=== PATIENT | male | born 1980 | race Caucasian/White ===

== ENCOUNTER 2019-12-10 07:54 | Day surgery (SDC) | payer MEDICAID ==
[2019-12-05 10:45] LABS: BASOPHILS # (AUTO) 0.1 X10'3 (0-0.2); EOSINOPHILS # (AUTO) 0.5 X10'3 (0-0.9); LYMPHOCYTES # (AUTO) 3.1 X10'3 (1.1-4.8); LYMPHOCYTES % (AUTO) 31.3 % (21-51); MEAN CORPUSCULAR HEMOGLOBIN 29.2 PG (27.0-31.0); MEAN CORPUSCULAR HGB CONC 34.4 g/dL (33.0-36.5); MEAN CORPUSCULAR VOLUME 84.7 FL (78-98); MEAN PLATELET VOLUME 8.1 FL (7.4-10.4); MONOCYTES # (AUTO) 0.7 X10'3 (0-0.9); MONOCYTES % (AUTO) 7.2 % (2-12); NEUTROPHILS # (AUTO) 5.4 X10'3 (1.8-7.7); NEUTROPHILS % (AUTO) 55.5 % (42-75); PRE OP HEMATOCRIT 47.3 % (42.0-52.0); PRE OP HEMOGLOBIN 16.3 g/dL (14.0-17.9); PRE OP PLATELET COUNT 244 X10'3 (140-440); RED BLOOD COUNT 5.58 X10'6 (4.70-6.10); RED CELL DISTRIBUTION WIDTH 14.4 % (11.5-14.5)
[2019-12-05 11:07] LABS: ALBUMIN 4.5 G/DL (3.4-5.0); ALBUMIN/GLOBULIN RATIO 1.4 (1.1-1.5); ALKALINE PHOSPHATASE 72 IU/L (46-116); BLOOD UREA NITROGEN 22 MG/DL (7-18); BUN/CREATININE RATIO 21.4 (5.4-32.0); CALCIUM 8.9 MG/DL (8.5-10.1); CHLORIDE 106 MMOL/L (99-107); CREATININE 1.03 MG/DL (0.60-1.10); PRE OP ALT 57 U/L (30-65); PRE OP ANION GAP 4 (8-16); PRE OP AST 26 U/L (10-37); PRE OP BILIRUB, TOTAL 0.7 MG/DL (0.0-1.0); PRE OP GLUCOSE 96 MG/DL (70-104); PRE OP POTASSIUM 3.9 MMOL/L (3.4-5.1); PRE OP SODIUM 142 MMOL/L (135-145); TOTAL CARBON DIOXIDE 32.2 MMOL/L (24-32); TOTAL PROTEIN 7.7 G/DL (6.4-8.2); eGFR 80 ML/MIN
[2019-12-05 11:16] LABS: CLARITY,URINE CLOUDY (Clear); COLOR,URINE YELLOW (Yellow); GLUCOSE, URINE NEGATIVE (Neg); KETONES,URINE NEGATIVE (Neg); LEUKOCYTE ESTERASE ,URINE NEGATIVE (Neg); NITRITES, URINE NEGATIVE (Neg); OCCULT BLOOD,URINE TRACE-INTACT (Neg); PROTEIN,URINE NEGATIVE (Neg); UA COLLECTION TYPE VOIDED; UROBILINOGEN,URINE 0.2 E.U/dL (0.2-1.0)
[2019-12-05 11:26] LABS: MUCUS STRANDS MODERATE /LPF (Neg)
[2019-12-05 11:27] LABS: BACTERIA,URINE 1+ /HPF (Neg); CAL OXALATE CRYSTALS 3+ /HPF (NEGATIVE)
[2019-12-05 11:28] LABS: RBC,URINE 0-2 /HPF (0-2); SQUAMOUS EPITHELIAL CELL,UR FEW /LPF (FEW); WBC,URINE 0-4 /HPF (0-4)
[2019-12-10] VITALS (15 sets, daily range): BP systolic 121–142; BP diastolic 69–95
[~2019-12-10] VITALS: Ht 193 cm; Wt 111.4 kg
[~2019-12-10 07:54] MED LIST: NO HOME MEDS; clindamycin-Cleocin 900mg/D5W 50 ML IV ONE; famotidine 20mg tablet PO ONE; ringers solution, lacted 1,000 ML IV SCH
[2019-12-10] MEDS ORDERED: diazepam 5mg tablet PO ONE (09:45)
[2019-12-10] MEDS ORDERED: ringers solution, lacted 1,000 ML IV SCH (10:23)
[2019-12-10] MEDS ORDERED: ondansetron/PF 4mg/2ml inj IV PRN (10:25)
[2019-12-10] MEDS ORDERED: meperidine/PF 25mg/ml syringe IV PRN ×3 (10:25)
[2019-12-10] MEDS ORDERED: morphine 4 MG/ML inj SYRINge IV PRN (10:25)
[2019-12-10] MEDS ORDERED: morphine 2 MG/ML inj. syringe IV PRN (10:25)
[2019-12-10] MEDS ORDERED: proCHLORperazine 10 MG/2 ml inj IV PRN (10:25)
[2019-12-10] MEDS ORDERED: BUPIVAcaine/PF 2.5 mg/ml (0.25%) 30ml vial ONE (10:38)
[2019-12-10] MEDS ORDERED: sevoflurane 250ml liquid IH ONE (10:54)
[2019-12-10] MEDS ORDERED: midazolam 2 mg/2 ml injection ONE (10:57)
[2019-12-10] MEDS ORDERED: fentaNYL/PF 50MCG/1 ML 2ML syringe ONE (10:57)
[2019-12-10] MEDS ORDERED: BUPIVACAINE liposomal/PF 13.3 MG/ML vial IM ONE (11:16)
[2019-12-10] MEDS ORDERED: dexamethasone sod phosphate 4mg/ml inj. ONE (11:20)
[2019-12-10] MEDS ORDERED: ondansetron/PF 4mg/2ml inj ONE (11:20)
[2019-12-10] MEDS ORDERED: propofol inj 20 ML IV ONE (11:21)
[2019-12-10] MEDS ORDERED: LIDOcaine 2% (20mg/ml) 5ml vial ONE (11:21)
--- NOTE | 2019-12-10 12:08 | NUR ---
Received from OR via , accompanied by Anesthesiologist DR ORTIZ and report given by Anesthesiolgist. AWAKENS TO VOICE. VITALS STABLE. DRESSING DI. SAVAGE PAIN. ABD SOFT.
[2019-12-10] MEDS ORDERED: HYDROcodone/acetaminophen 10/325mg tab PO ONE (13:25)
--- NOTE | 2019-12-10 13:48 | NUR ---
Report called to receiving nurse. Transferred via [facility] . Special Issues communicated to receiving nurse. AWAKENS TO VOICE. VITALS STABLE. DRESSING DI. STATES PAIN IMPROVING. TO PAS AT THIS TIME.
--- NOTE | 2019-12-10 14:28 | NUR ---
AWAKE VS WNL, DSG DI, ABD SOFT VOIDED CLEAR YELLOW QS, TOLERATES LIQUIDS, DISCH INTR GIVEN TO PT AND SO AND UNDERSTOOD. MED PO FOR PAIN WITH GOOD RESULTS. HOME WITH SO.
== END 2019-12-10 14:28 | disposition home or self-care (01) ==
LOC: PAS 07:54
PROVIDERS: ATTEND Surgery
DX: K40.90 Unilateral inguinal hernia, without obstruction or gangrene, not specified as recurrent (principal)
CPT/HCPCS: 36415; 49505; 80053; 81001; 82948; 85025; 93005; C1781; C9290; J1100; J2001; J2175; J2250; J2405; J2704; J3010; J3490; A4215; A4618; A6449; A7000; J7120

== ENCOUNTER 2020-10-19 17:31 | Emergency (ER) | payer MEDICAID ==
[~2020-10-19] VITALS: Ht 193 cm; Wt 78.6 kg
[~2020-10-19 17:31] MED LIST changes: -clindamycin-Cleocin 900mg/D5W 50 ML IV ONE; -famotidine 20mg tablet PO ONE; -ringers solution, lacted 1,000 ML IV SCH
[2020-10-19 18:45] VITALS: BP 164/106
== END 2020-10-19 19:15 | disposition home or self-care (01) ==
LOC: ER 17:32
DX: I10 Essential (primary) hypertension (principal); F17.200 Nicotine dependence, unspecified, uncomplicated; Z88.0 Allergy status to penicillin
CPT/HCPCS: 99281; 99285

== ENCOUNTER 2021-05-05 20:56 | Emergency (ER) | payer MEDICAID ==
[~2021-05-05] VITALS: Ht 193 cm; Wt 113.6 kg
[2021-05-05 21:24] VITALS: BP 148/122
[2021-05-05] MEDS ORDERED: INDO50CA96 PO (23:17)
[2021-05-05] MEDS ORDERED: PRED20TA PO (23:17)
== END 2021-05-05 23:41 | disposition home or self-care (01) ==
LOC: ER 20:56
DX: M10.9 Gout, unspecified (principal); M79.672 Pain in left foot; I10 Essential (primary) hypertension; Z88.8 Allergy status to other drugs, medicaments and biological substances; Z79.899 Other long term (current) drug therapy
CPT/HCPCS: 99283

== ENCOUNTER 2023-12-21 16:57 | Emergency (ER) | payer MEDICAID ==
[~2023-12-21] VITALS: Ht 193 cm; Wt 122.7 kg
[~2023-12-21 16:57] MED LIST changes: +INDO50CA96 PO
[2023-12-21 16:58] VITALS: BP 225/137; PULSE 96; RESP 16; TEMP 98.1; O2SAT 99
== END 2023-12-21 17:40 | disposition home or self-care (01) ==
LOC: ER 16:58
DX: S61.211D Laceration without foreign body of left index finger without damage to nail, subsequent encounter (principal); I10 Essential (primary) hypertension; X58.XXXD Exposure to other specified factors, subsequent encounter; Z88.0 Allergy status to penicillin; Z79.899 Other long term (current) drug therapy
CPT/HCPCS: 99281

== ENCOUNTER 2024-03-29 17:59 | Emergency (ER) | payer MEDICAID, OTHER ==
[~2024-03-29] VITALS: Ht 193 cm; Wt 122.8 kg
[2024-03-29 18:36] LABS: BASOPHILS # (AUTO) 0.1 X10'3 (0-0.2); BASOPHILS % (AUTO) 0.8 % (0-1); EOSINOPHILS # (AUTO) 0.3 X10'3 (0-0.9); EOSINOPHILS % (AUTO) 2.5 % (0-6); HEMATOCRIT 46.2 % (42.0-52.0); HEMOGLOBIN 15.5 g/dl (14.0-17.9); LYMPHOCYTES # (AUTO) 2.4 X10'3 (1.1-4.8); LYMPHOCYTES % (AUTO) 19.1 % (21-51); MEAN CORPUSCULAR HEMOGLOBIN 28.3 PG (27.0-31.0); MEAN CORPUSCULAR HGB CONC 33.5 g/dL (33.0-36.5); MEAN CORPUSCULAR VOLUME 84.3 FL (78-98); MEAN PLATELET VOLUME 8.8 FL (7.4-10.4); MONOCYTES # (AUTO) 0.9 X10'3 (0-0.9); MONOCYTES % (AUTO) 7.5 % (2-12); NEUTROPHILS # (AUTO) 8.9 X10'3 (1.8-7.7); NEUTROPHILS % (AUTO) 70.1 % (42-75); PLATELET COUNT 229 X10'3 (140-440); RED BLOOD COUNT 5.48 X10'6 (4.70-6.10); RED CELL DISTRIBUTION WIDTH 13.6 % (11.5-14.5); WHITE BLOOD COUNT 12.6 X10'3 (4.5-11.0)
[2024-03-29 19:02] LABS: ALBUMIN 3.6 G/DL (3.4-5.0); ANION GAP 6 (8-16); BLOOD UREA NITROGEN 11 MG/DL (7-18); BUN/CREATININE RATIO 10.6 (10.0-20.0); CALCIUM 8.9 MG/DL (8.5-10.1); CHLORIDE 100 MMOL/L (99-107); CREATININE 1.04 MG/DL (0.60-1.10); GLUCOSE 376 MG/DL (70-104); PRO BRAIN NATRIURETIC PEPTIDE 42 PG/ML (0-125); SODIUM 134 MMOL/L (135-145); TOTAL CARBON DIOXIDE 28.4 MMOL/L (24-32); URIC ACID 4.4 MG/DL (3.5-7.2); eCRCL 109 ML/MIN; eGFR 77 ML/MIN
[2024-03-29] MEDS: colchicine 0.6mg tablet PO ONE ×2 (19:56→21:00)
[2024-03-29] MEDS: normal saline 1000ML IV soln IVB ONE (19:56)
[2024-03-29 20:07] LABS: STREP A SCREEN NEGATIVE (Neg)
[2024-03-29] MEDS ORDERED: LISI20TA28 PO (21:19)
[2024-03-29] MEDS ORDERED: METF-436 PO (21:19)
[2024-03-29] MEDS ORDERED: INDO50CA96 PO (21:19)
[2024-03-29 23:33] VITALS: BP 182/112; PULSE 70; RESP 16; TEMP 98.8; O2SAT 97
== END 2024-03-29 23:34 | disposition home or self-care (01) ==
LOC: ER 18:00
DX: J02.9 Acute pharyngitis, unspecified (principal); M10.9 Gout, unspecified; R73.9 Hyperglycemia, unspecified; I10 Essential (primary) hypertension; B34.9 Viral infection, unspecified; Z88.0 Allergy status to penicillin; Z79.899 Other long term (current) drug therapy
CPT/HCPCS: 36415; 71045; 80048; 82948; 83880; 84484; 84550; 85025; 87081; 87880; 93005; 96360; 99285; J7030; A6253; A6402